=== PATIENT | female | born 1980 | race Two or more races ===

== ENCOUNTER 2022-04-02 23:14 | Emergency (ER) | payer OTHER ==
[~2022-04-02] VITALS: Ht 149.9 cm; Wt 54.4 kg
[2022-04-03] MEDS ORDERED: KETO10TA2 PO (04:25)
== END 2022-04-03 04:33 ==
LOC: ER
DX: S29.9XXA Unspecified injury of thorax, initial encounter (principal); W10.9XXA Fall (on) (from) unspecified stairs and steps, initial encounter; Y93.9 Activity, unspecified; Y92.019 Unspecified place in single-family (private) house as the place of occurrence of the external cause